=== PATIENT | male | born 1955 | race Caucasian/White ===

== ENCOUNTER 2020-06-11 15:48 | Inpatient (IN) | payer MEDICAID ==
[~2020-06-11] VITALS: Ht 165.1 cm; Wt 85.3 kg
[2020-06-11] MEDS ORDERED: SODIUM CHLORIDE 0.9% 500 ML IV ONE (16:15)
[2020-06-11 17:14] LABS: BASOPHILS % 0.8 % (0.0-2.0); EOSINOPHILS % 4.2 % (0.0-5.0); HEMATOCRIT. 46.4 % (42.0-52.0); HEMOGLOBIN. 15.9 g/dL (14.0-18.0); MEAN CORPUSCULAR HEMOGLOBIN 28.9 pg (28.0-32.0); MEAN CORPUSCULAR VOLUME 84.2 fL (80.0-94.0); MEAN PLATELET VOLUME 9.9 fl (7.4-10.4); MONOCYTES % 4.7 % (2.0-8.0); NEUTROPHILS % 78.3 % (40.0-76.0); PLATELET 226 x1000/uL (130-400); RED BLOOD CELL COUNT 5.51 mill/uL (4.7-6.1); RED CELL DISTRIBUTION WIDTH 13.1 % (11.6-14.6)
[2020-06-11 17:20] LABS: CHLORIDE 106 mEq/L (98-107)
[2020-06-11 17:28] LABS: ETHANOL BLOOD < 10 mg/dL
[2020-06-11] MEDS ORDERED: FLUORESCEIN SODIUM 1MG/STRIP BOTHEYE ONE (17:30)
[2020-06-11] MEDS ORDERED: TETRACAINE 0.5% OPHTH DROPS 4ML BOTHEYE ONE (17:30)
[2020-06-11] MEDS ORDERED: TOBRAMYCIN/DEXAMETH 0.1/0.3% OPHTH SUSP 2.5ML RIGHTEYE STA (20:17)
[2020-06-11 22:35] VITALS: BP 125/88
[2020-06-11 23:13] LABS: CLARITY URINE CLEAR (CLEAR); COLOR URINE YELLOW (YELLOW); KETONES URINE NEGATIVE (NEGATIVE); LEUKOCYTE ESTERASE URINE NEGATIVE (NEGATIVE); NITRITE URINE NEGATIVE (NEGATIVE); OCCULT BLOOD URINE NEGATIVE (NEGATIVE); PH URINE 6.5 (4.5-8.0); PROTEIN URINE NEGATIVE (NEGATIVE); SPECIFIC GRAVITY URINE 1.011 (1.005-1.030); UROBILINOGEN URINE 0.2 E.U./dL (0.2-1.0)
[2020-06-11 23:32] LABS: *AMPHETAMINES SCREEN URINE NEGATIVE (NEGATIVE); *BARBITURATES SCREEN URINE NEGATIVE (NEGATIVE); *BENZODIAZEPINES SCREEN URINE NEGATIVE (NEGATIVE); *COCAINE SCREEN URINE NEGATIVE (NEGATIVE); METHADONE URINE SCREEN NEGATIVE (NEGATIVE); OPIATES URINE SCREEN NEGATIVE (NEGATIVE)
[2020-06-11 23:33] LABS: CANNABINOID URINE SCREEN NEGATIVE (NEGATIVE); PHENCYCLIDINE URINE SCREEN NEGATIVE (NEGATIVE)
[2020-06-11 23:35] VITALS: BP 125/88
[2020-06-12] VITALS (7 sets, daily range): BP systolic 117–144; BP diastolic 81–100
[2020-06-12] MEDS ORDERED: ACETAMINOPHEN 325MG TABLET PO PRN ×2 (00:15)
[2020-06-12] MEDS ORDERED: ONDANSETRON HCL 4MG/2ML INJ IV PRN (00:15)
[2020-06-12] MEDS ORDERED: DIPHENHYDRAMINE 50MG/ML VIAL IV PRN (00:15)
[2020-06-12] MEDS ORDERED: MAGNESIUM/ALUMINUM HYDROXIDE/SIMETHICONE 30ML UDC PO PRN (00:15)
[2020-06-12] MEDS ORDERED: CLONIDINE 0.1MG TABLET PO PRN (00:15)
[2020-06-12] MEDS ORDERED: MECLIZINE 25MG TABLET PO PRN (00:15)
[2020-06-12] MEDS ORDERED: ZOLPIDEM TARTRATE 5MG TABLET PO PRN (00:15)
[2020-06-12] MEDS ORDERED: ENAL20TA18 MT (00:49)
[2020-06-12] MEDS ORDERED: AMLO10TA80 PO (00:49)
[2020-06-12] MEDS ORDERED: CARV12.545 PO (00:49)
[2020-06-12] MEDS ORDERED: *PATIENT'S OWN MEDICATION STORAGE XX SCH (01:45)
[2020-06-12] MEDS: SODIUM CHLORIDE 0.9% INJ 3ML FLUSH IVF SCH ×2 (05:46→14:20)
[2020-06-12] MEDS ORDERED: AMLODIPINE 5MG TABLET PO SCH (09:00)
[2020-06-12] MEDS ORDERED: CARVEDILOL 6.25 MG TABLET PO SCH (09:00)
[2020-06-12] MEDS ORDERED: ENALAPRIL 5MG TABLET PO SCH (09:00)
[2020-06-12] MEDS ORDERED: AMLODIPINE 10MG TABLET PO SCH (09:00)
== END 2020-06-12 18:50 | disposition home or self-care (01) | DRG 82 ==
LOC: ER 16:09 → 6WST 20:19 → EDBEDREQ 20:21 → EDBEDREQTM 20:21 → ENRESERV 20:38
PROVIDERS: ADMIT Internal Medicine; ATTEND Internal Medicine
DX: S05.01XA Injury of conjunctiva and corneal abrasion without foreign body, right eye, initial encounter (principal); H53.2 Diplopia; I10 Essential (primary) hypertension; R42 Dizziness and giddiness; Z87.891 Personal history of nicotine dependence; Z82.49 Family history of ischemic heart disease and other diseases of the circulatory system; X58.XXXA Exposure to other specified factors, initial encounter; Y92.89 Other specified places as the place of occurrence of the external cause; Y93.89 Activity, other specified; Y99.8 Other external cause status; R65.10 Systemic inflammatory response syndrome (SIRS) of non-infectious origin without acute organ dysfunction
CPT/HCPCS: 36415; 71045; 80053; 80305; 80320; 81003; 83880; 84484; 85025; 93005; 93970; 99285; J7040; G0480

== ENCOUNTER 2020-07-22 14:39 | Emergency (ER) | payer SELFPAY ==
[~2020-07-22] VITALS: Ht 154.9 cm; Wt 87.0 kg
[~2020-07-22 14:39] MED LIST: AMLO10TA80 PO; CARV12.545 PO; ENAL20TA18 MT
[2020-07-22 14:46] VITALS: BP 144/99
== END 2020-07-22 19:25 | disposition home or self-care (01) ==
LOC: ER 14:39
DX: R09.89 Other specified symptoms and signs involving the circulatory and respiratory systems (principal); I10 Essential (primary) hypertension; Z98.890 Other specified postprocedural states
CPT/HCPCS: 70360; 99283